=== PATIENT | male | born 1940 | race Caucasian/White ===

== ENCOUNTER → 2021-02-21 | Outpatient (CLI) | payer MEDICARE ==
[2021-02-21 09:21] LABS: HCT 48.2 % (39.0-53.0); HGB 15.9 gm/dL (13.0-17.5); MCH 31.7 pg (25.0-35.0); MCV 96.3 fL (80.0-100.0); Platelet Count 195 k/uL (150-450); RBC 5.01 m/uL (4.30-5.90); RDW 13.2 % (11.5-15.5); WBC 6.6 k/uL (3.8-10.6)
[2021-02-21 09:38] LABS: Potassium 4.2 mmol/L (3.5-5.1)
== END | disposition home or self-care (01) ==
LOC: LABPAT 08:43
PROVIDERS: ATTEND Internal Medicine Clinical Cardiac Electrophysiology
DX: Z01.812 Encounter for preprocedural laboratory examination (principal); I48.19 Other persistent atrial fibrillation
CPT/HCPCS: 36415; 80051; 82565; 84520; 85027

== ENCOUNTER 2021-03-02 12:44 | Day surgery (SDC) | payer MEDICARE ==
[2021-02-24 10:40] VITALS: BMI 31.1
[~2021-03-02 12:44] MED LIST: DEXAMETHASONE SOD PHOSPHATE 4 MG/ML 1 ML VIAL IV ONE; LACTATED RINGERS 1,000 ML IV SCH; LIDOCAINE 1% (10MG/ML) FOR IV START INTRADERMA PRN; ONDANSETRON 4 MG/2 ML VIAL IVP ONE; ONDANSETRON 4 MG/2 ML VIAL IVP PRN; SODIUM CHLORIDE 0.9% 1,000 ML IV SCH
[2021-03-02] MEDS ORDERED: SODIUM CHLORIDE 0.9% 1,000 ML IV ONE (13:11)
[2021-03-02 13:46] VITALS: RESP 16
[2021-03-02 14:03] LABS: Prothrombin Time 19.8 sec (9.0-12.0)
[2021-03-02] MEDS ORDERED: SUCCINYLCHOLINE CHLORIDE 100 MG/5 ML SYR IV ONE (15:27)
[2021-03-02] MEDS ORDERED: PHENYLEPHRINE-0.9% NACL SYG 1,000 MCG/10 ML SYRINGE ONE (15:27)
[2021-03-02] MEDS ORDERED: HEPARIN SODIUM,PORCINE 10,000 UNIT/ML 1 ML VIAL ONE (15:27)
[2021-03-02] MEDS ORDERED: PROPOFOL 10 MG/ML 20 ML VIAL IV ONE (15:27)
[2021-03-02] MEDS ORDERED: LIDOCAINE 1% INJ 10MG/ML (20 ML MDV) ONE ×2 (15:27→16:03)
[2021-03-02] MEDS ORDERED: fentaNYL (PF) 50 MCG/ML 2 ML AMP ONE (15:27)
[2021-03-02] MEDS ORDERED: LIDOCAINE URO-JET JELLY 2% 5 ML KIT ONE (15:50)
[2021-03-02] MEDS ORDERED: HEPARIN SODIUM (1,000 UNIT/ML) 1,000 UNIT in SODIUM CHLORIDE 0.9% 1,000 ML IRRIGATION ONE (15:54)
[2021-03-02] MEDS ORDERED: HEPARIN SOD,PORK IN 0.45% NACL 25,000 UNIT in 0.45% NACL 1 250ML.BAG IV ONE (15:55)
[2021-03-02] MEDS ORDERED: LIDOCAINE 1% INJ 10MG/ML (20 ML MDV) SQ ONE (16:40)
[2021-03-02] MEDS ORDERED: IOPAMIDOL-370 100ML BTL INJ ONE (17:04)
[2021-03-02] MEDS ORDERED: ACETAMINOPHEN TAB 325 MG TAB PO PRN (18:49)
--- NOTE | 2021-03-02 19:04 | P.PRLE ---
RE: Don Cuellar Dear Staceydanny Ochoa underwent an A. fib ablation with cryoablation and ablation of the left atrial roof and septum He was noted to be hypertensive in the hospital and therefore I have started valsartan in place of quinapril and hydralazine He has underlying sick sinus syndrome and therefore I'm holding atenolol temporarily I will check on him in about a week's time Thank you for entrusting me with the care of the patient Warm regards Sincerely Noman Kovacs
--- NOTE | 2021-03-02 19:10 | P.EPPROC ---
- EP Procedure Note Electrophysiology Procedure Note: PROCEDURE A. fib ablation DIAGNOSIS Persistent Atrial fibrillation, symptomatic, refractory to therapy RESULT No left atrial appendage mass seen on intracardiac echo Successful A. fib ablation/pulmonary vein isolation of all veins using cryo- ablation Complete entrance block in all 4 veins confirmed Linear ablation of the left atrial roof Septal ablation, LA No evidence for phrenic nerve injury Dilated left atrium, long roofline Esophageal deflection YES , left-sided esophagus Electrical cardioversion with a synchronized shock across the chest YES PROCEDURE DETAILS Patient was brought to the EP lab in a fasting state after obtaining written informed consent. Procedure performed under general anesthesia Esophagus was intubated. Esophageal temperature monitoring with circa catheter. Esophageal deflection with an endoscope to avoid hypothermia of the esophagus. After initial muscle relaxant use, muscle relaxants were not given thereafter in order to assess phrenic nerve during procedure. Patient prepped and draped as per protocol Cryo ablation-set up with standard preparation of the cryoablation tools done. Femoral Venous access obtained on the right and left groins and sheaths placed Diagnostic catheters for the high right atrium, phrenic nerve stimulation and pa cing, His bundle, coronary sinus placed Intracardiac echo catheter placed. Long sheath placed in the right atrium Left and right transseptal catheterization performed under intracardiac echo guidance. Intravenous heparin with aCT above 300 Later, catheter positioning and balloon positioning in the left atrium and pulmonary veins, under intracardiac echo guidance Diagnostic EP study with coronary sinus pacing and recording Baseline measurements: QRS 118, QT 446 Transseptal catheterization performed RA pressure 15/9/12 LA pressure 11/9/10 Transseptal catheterization performed with standard sheath. The cryoablation sheath was then placed with an over the wire exchange without any acute complications. The cryoablation balloon was placed in the office of each pulmonary vein and all 4 pulmonary veins were isolated. IV dye was injected to confirm occlusion. Goal: achieve complete occlusion of the pulmonary vein, achieve -30 degrees C at 30 seconds and achieve -40 degrees C at 60 seconds and a time to effect of less than 60 seconds. If not, the balloon was repositioned to obtain this result After completion of Cryoblation with durations from 180-240 seconds, entrance block was confirmed with the Attain circular catheter in a roving fashion around the antrum of the pulmonary veins Phrenic nerve pacing was performed from the SVC, right innominate vein area and diaphragm voltage was monitored. Diaphragmatic contractions were also monitored manually for strength of contraction. The inferior branch of the left superior veins were cannulated with the achieve catheter, for sequential roofline ablations. A complete line of block was made and no grams were noted along this line when mapped subsequently The left atrial septum was ablated with the balloon placed along the posterior septum and the achieve catheter in the inferior tributary of the right superior pulmonary vein. Complete quiescent cyst was noted in the septum following this At the end of the procedure the Achieve catheter was once again used to check for entrance block Phrenic nerve stimulation was performed to confirm diaphragmatic stimulation the end of the procedure Cine fluoroscopy was performed at the very end of the procedure to confirm movement of both diaphragms with inspiration and expiration At the end of the procedure the patient was extubated Venous sheaths were removed and hemostasis assured with a closure device PROCEDURES PERFORMED Diagnostic EP study CS pacing and recording Left and right transseptal catheterization Catheter the mapping of the tachycardia Intracardiac echocardiography Pulmonary vein isolation with transseptal and comprehensive EPS, 31940 Left atrial roof line, +16915 Linear ablation, left atrium, +03977 Electrical cardioversion with a synchronized shock across the chest [id number]
--- NOTE | 2021-03-02 19:16 | P.PCN ---
Preoperative Diagnosis: Extended procedure The patient had very dilated large pulmonary veins The left superior pulmonary vein had a large tributaries which were individually isolated with cryoablation, three-minute lesions each The left inferior pulmonary vein had 2 large tributaries which are also individually isolated with 2 sequential cryoablation lesions for 3 minutes each Effectively the patient had 4 left-sided pulmonary vein that was sequentially isolated Isolating the left-sided veins to can longer time since the ostia of the left- sided veins were large and required sequential antral cryo- ablations
[2021-03-02] MEDS ORDERED: ACETAMINOPHEN IV (For NPO) 1,000 MG in EMPTY BAG 1 BAG IVPB ONE (20:00)
[2021-03-02] MEDS ORDERED: ATORVASTATIN 20 MG TAB PO SCH (21:00)
[2021-03-02] MEDS ORDERED: VALSARTAN 160 MG TAB PO SCH (21:00)
[2021-03-02] MEDS ORDERED: WARFARIN 10 MG TAB PO ONE (21:00)
--- NOTE | 2021-03-03 08:01 | P.DS ---
Providers Attending physician: Noman Kovacs Primary care physician: Niharika Mendezroy [facility] Course: Patient is doing well no chest discomfort no dizziness lightheadedness no palpitations He does have a living will for sore throat No pain in the groins Groins of healed well no hematoma On examination his blood pressure is normal 130and 4 mmHg Temperature 99.5 degrees Looks well Heart sounds S1 and S2 are normal no murmurs or gallop or rub Breath sounds are clear no rhonchi no crackles Extremities warm no edema Impression Persistent atrial fibrillation Underlying Sick Sinus Syndrome Significantly dilated left atrium Status post pulmonary vein isolation, linear ablation in the septum of the left atrium and we did ablation of the left atrial roof Plan Resume warfarin at the usual dose. Yesterday he got 10 mg of Coumadin since INR is 2.0 Stop quinapril Stop hydralazine Valsartan 160 mg by mouth daily in the evening Continue amlodipine 10 mg in a.m. Hold off on atenolol for now Continue atorvastatin fenofibrate baby aspirin Incentive spirometry discussed May go home today later this morning if stable Will follow in a week PT/INR and follow-up Controlled monitor and follow-up Plan - Discharge Summary Discharge Rx Participant: No New Discharge Prescriptions: New Valsartan [Diovan] 160 mg PO DAILY #90 tablet Aspirin 81 mg PO DAILY #90 tab Discontinued hydrALAZINE HCL [Apresoline] 25 mg PO BID atenoloL [Tenormin] 25 mg PO HS Quinapril HCl [Accupril] 20 mg PO BID No Action Vitamin B Complex 1 each PO BID Warfarin [Coumadin] 7.5 mg PO SUTUWETHSA Warfarin [Coumadin] 5 mg PO MOFR Alendronate Sodium [Fosamax] 70 mg PO FR amLODIPine [Norvasc] 10 mg PO DAILY Loperamide [Imodium] 2 mg PO DIRECTED PRN PRN Reason: Diarrhea Cholecalciferol [Vitamin D3 (25 Mcg = 1000 Iu)] 50 mcg PO BID Fenofibrate Nanocrystallized [Tricor] 145 mg PO QAM Atorvastatin Calcium [Lipitor] 20 mg PO HS Discharge Medication List Alendronate Sodium [Fosamax] 70 mg PO FR 02/24/21 [History] Atorvastatin Calcium [Lipitor] 20 mg PO HS 02/24/21 [History] Cholecalciferol [Vitamin D3 (25 Mcg = 1000 Iu)] 50 mcg PO BID 02/24/21 [History] Fenofibrate Nanocrystallized [Tricor] 145 mg PO QAM 02/24/21 [History] Loperamide [Imodium] 2 mg PO DIRECTED PRN 02/24/21 [History] Vitamin B Complex 1 each PO BID 02/24/21 [History] Warfarin [Coumadin] 5 mg PO MOFR 02/24/21 [History] Warfarin [Coumadin] 7.5 mg PO SUTUWETHSA 02/24/21 [History] amLODIPine [Norvasc] 10 mg PO DAILY 02/24/21 [History] Aspirin 81 mg PO DAILY #90 tab 03/02/21 [Rx] Valsartan [Diovan] 160 mg PO DAILY #90 tablet 03/02/21 [Rx] Follow up Appointment(s)/Referral(s): Noman Kovacs MD [STAFF PHYSICIAN] - 1 Week Activity/Diet/Wound Care/Special Instructions: Post EP study - Ablation instructions 1. Keep access sites dry for 2 days. 2. No heavy lifting or straining for 2 days. 3. Avoid bending the hips repeatedly for 2 days. 4. You may go up and down stairs slowly Call if the following is noted 1. Bleeding, increasing swelling or pain at the access sites. 2. Increasing chest discomfort, especially upon taking a deep breath. 3. Increasing shortness of breath, at rest or with exertion. 4. Undue cough / phlegm 5. Difficulty or pain while swallowing. 6. Pain or change in color in the extremities. 7. Fever, chills, rigors. 8. Increasing headache or neurologic symptoms. 9. Dizziness, fainting, palpitations Medication changes Stop hydralazine Hold atenolol Stop quinapril Valsartan 160 mg once daily in the evening, new medication Amlodipine 10 mg in the morning Continue warfarin Continue atorvastatin fenofibrate and a baby aspirin Follow Dr. Kovacs/Agustina Crook in 1-2 weeks Discharge Disposition: HOME SELF-CARE
[2021-03-03 08:03] VITALS: BP 145/84; PULSE 87; TEMP 98.8
[2021-03-03] MEDS ORDERED: amLODIPine 10 MG TAB PO SCH (09:00)
[2021-03-03 11:12] LABS: Chol/HDL Ratio 2.67 Ratio
[2021-03-03 11:56] LABS: INR 1.94 (0.90-1.11); Prothrombin Time 21.2 sec (9.9-11.9)
== END 2021-03-03 11:00 | disposition home or self-care (01) ==
LOC: CATHEP 12:44 → 6NMEDSUR 18:25 → CATHEP 03-03 11:00
PROVIDERS: ATTEND Internal Medicine Clinical Cardiac Electrophysiology
DX: I48.19 Other persistent atrial fibrillation (principal); I49.5 Sick sinus syndrome; I65.23 Occlusion and stenosis of bilateral carotid arteries; E78.5 Hyperlipidemia, unspecified; I10 Essential (primary) hypertension; Z79.01 Long term (current) use of anticoagulants; Z79.83 Long term (current) use of bisphosphonates; Z79.899 Other long term (current) drug therapy
CPT/HCPCS: 93609; 93656; 93657; 80061; 85610 ×2; 83036; 87635; C1759; C1894 ×2; C1769 ×4; C1760; C1730 ×2; C1893; C1733; C1766; J2001; J0131; Q9967; J1644

== ENCOUNTER 2021-03-06 11:04 | Emergency (ER) | payer MEDICARE ==
--- NOTE | 2021-03-06 11:53 | ED ---
General Adult HPI - General Chief complaint: Recheck/Abnormal Lab/Rx Stated complaint: post ablation groin pain Source: patient, family Mode of arrival: wheelchair Limitations: no limitations - History of Present Illness Initial comments: 80-year-old male with a past medical history of atrial fibrillation, hyperlipidemia, hypertension with ablation done 4 days ago presents to the emergency room for left groin pain. Patient states he has had bruising since he left the hospital however yesterday started to get left groin pain. Patient states that he was out and about on Saturday going to jainism and feeding the birds. States she was bending over to clean his toilet. He was not sure if he caused a problem with the procedure or if he maybe pulled his groin. Patient called Dr. Kovacs's office and they recommended he come to the emergency room so someone could "lay eyes on him."Patient has no other complaints at this time including shortness of breath, chest pain, abdominal pain, nausea or vomiting, headache, or visual changes. - Related Data Home Medications Medication Instructions Recorded Confirmed Alendronate Sodium [Fosamax] 70 mg PO FR 02/24/21 03/06/21 Atorvastatin Calcium [Lipitor] 20 mg PO HS 02/24/21 03/06/21 Cholecalciferol [Vitamin D3 (25 50 mcg PO BID 02/24/21 03/06/21 Mcg = 1000 Iu)] Fenofibrate Nanocrystallized 145 mg PO QAM 02/24/21 03/06/21 [Tricor] Loperamide [Imodium] 2 mg PO QID PRN 02/24/21 03/06/21 Vitamin B Complex 1 cap PO BID 02/24/21 03/06/21 Warfarin [Coumadin] 5 mg PO MOFR 02/24/21 03/06/21 Warfarin [Coumadin] 7.5 mg PO SUTUWETHSA 02/24/21 03/06/21 amLODIPine [Norvasc] 10 mg PO DAILY 02/24/21 03/06/21 Aspirin 81 mg PO HS 03/06/21 03/06/21 Valsartan [Diovan] 160 mg PO HS 03/06/21 03/06/21 Allergies Allergy/AdvReac Type Severity Reaction Status Date / Time No Known Allergies Allergy Verified 03/06/21 13:32 Review of Systems ROS Statement: Those systems with pertinent positive or pertinent negative responses have been documented in the HPI. ROS Other: All systems not noted in ROS Statement are negative. 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 Absent: scleral icterus, conjunctival injection ENT exam: Present: normal exam, mucous membranes moist Neck exam: Present: normal inspection, full ROM. Absent: tenderness Respiratory exam: Present: normal lung sounds bilaterally. Absent: respiratory distress, wheezes Cardiovascular Exam: Present: regular rate, normal rhythm, normal heart sounds GI/Abdominal exam: Present: soft, normal bowel sounds. Absent: distended, tenderness Extremities exam: Present: normal capillary refill (Marvin refill less than 2 seconds, DP pulse 2+ left lower extremity.), other (Patient has mild ecchymosis of the left groin with minimal tenderness.) Course Vital Signs 03/06/21 11:10 Temperature 98.2 F Pulse Rate 111 H Respiratory 20 Rate Blood Pressure 132/77 O2 Sat by Pulse 96 Oximetry EKG Findings - EKG Comments: EKG Findings:: Sinus tachycardia, ventricular rate 103, SD interval 172, QTc 476 Medical Decision Making - Medical Decision Making Patient underwent atrial fibrillation ablation on 03/02/2021 with access through the L groin. Vitals are stable. EKG shows a sinus tachycardia with a ventricular rate of 103. CBC CMP unremarkable. INR therapeutic at 2.2. Ultrasound shows a hematoma measuring 6.4 cm. No pseudoaneurysm evident. Case was discussed with patient's network intern Dr. Kovacs. There is concern that patient spending on Saturday may have triggered this hematoma. At this point recommends discharging patient home. Patient has an appointment with him on Saturday. They will return here for any worsening symptoms. - Lab Data Result diagrams: 03/06/21 12:20 03/06/21 12:20 Lab Results 03/06/21 03/06/21 03/06/21 Range/Units 12:20 12:20 12:20 WBC 7.5 (3.8-10.6) k/uL RBC 4.65 (4.30-5.90) m/uL Hgb 15.2 (13.0-17.5) gm/dL Hct 44.7 (39.0-53.0) % MCV 96.1 (80.0-100.0) fL MCH 32.6 (25.0-35.0) pg MCHC 33.9 (31.0-37.0) g/dL RDW 13.9 (11.5-15.5) % Plt Count 194 (150-450) k/uL MPV 8.1 Neutrophils % 77 % Lymphocytes % 14 % Monocytes % 5 % Eosinophils % 2 % Basophils % 0 % Neutrophils # 5.8 (1.3-7.7) k/uL Lymphocytes # 1.1 (1.0-4.8) k/uL Monocytes # 0.4 (0-1.0) k/uL Eosinophils # 0.2 (0-0.7) k/uL Basophils # 0.0 (0-0.2) k/uL PT 22.3 H (9.0-12.0) sec INR 2.2 H (<1.2) APTT 44.0 H (22.0-30.0) sec Sodium 136 L (137-145) mmol/L Potassium 3.9 (3.5-5.1) mmol/L Chloride 105 (98-107) mmol/L Carbon Dioxide 23 (22-30) mmol/L Anion Gap 8 mmol/L BUN 15 (9-20) mg/dL Creatinine 0.95 (0.66-1.25) mg/dL Est GFR (CKD-EPI)AfAm 89 (>60 ml/min/1.73 sqM) Est GFR (CKD-EPI)NonAf 77 (>60 ml/min/1.73 sqM) Glucose 135 H (74-99) mg/dL Calcium 9.5 (8.4-10.2) mg/dL Total Bilirubin 1.1 (0.2-1.3) mg/dL AST 39 (17-59) U/L ALT 25 (4-49) U/L Alkaline Phosphatase 42 (38-126) U/L Total Protein 7.5 (6.3-8.2) g/dL Albumin 4.2 (3.5-5.0) g/dL Disposition Clinical Impression: Hematoma Disposition: HOME SELF-CARE Condition: Good Instructions (If sedation given, give patient instructions): Hematoma (ED) Additional Instructions: Take Tylenol for pain. If pain is severe take Tylenol 3 but remember this can increase risk of falls. Follow-up with your network intern at your scheduled appointment on Saturday. Return to the emergency room for any worsening symptoms. Is patient prescribed a controlled substance at d/c from ED?: No Referrals: Niharika Tovar MD [Primary Care Provider] - 1-2 days oNman Kovacs MD [STAFF PHYSICIAN] - 1-2 days Time of Disposition: 13:38
--- NOTE | 2021-03-06 12:23 | US ---
EXAMINATION TYPE: US lower ext pseudo artery LT DATE OF EXAM: 03/06/2021 COMPARISON: NONE CLINICAL HISTORY: recent cath/rule out pseudoaneurysm. EXAM PERFORMED: Grayscale and color Doppler duplex imaging performed of the groin, post cardiac armida ter to assess for pseudoaneurysm. SIDE PERFORMED: Left Color and Waveform Doppler performed to assess for the presence of pseudoaneurysm; There is no ultrasound evidence of a pseudoaneurysm. There is no evidence of AV shunting. Probable hematoma medial to vessels measuring 6.4 x 3.8 x 5.1cm IMPRESSION: 1 findings are most likely related to a hematoma measuring 6.4 cm. No diagnostic evidence of flow wit hin a pseudoaneurysm
[2021-03-06 12:34] LABS: Basophils % (A) 0 %; Eosinophils # (A) 0.2 k/uL (0-0.7); Eosinophils % (A) 2 %; HCT 44.7 % (39.0-53.0); HGB 15.2 gm/dL (13.0-17.5); Lymphocytes # (A) 1.1 k/uL (1.0-4.8); Lymphocytes % (A) 14 %; MCH 32.6 pg (25.0-35.0); MCHC 33.9 g/dL (31.0-37.0); MCV 96.1 fL (80.0-100.0); Mean Platelet Volume 8.1; Monocytes # (A) 0.4 k/uL (0-1.0); Monocytes % (A) 5 %; Neutrophils # (A) 5.8 k/uL (1.3-7.7); Neutrophils % (A) 77 %; Platelet Count 194 k/uL (150-450); RBC 4.65 m/uL (4.30-5.90); RDW 13.9 % (11.5-15.5); WBC 7.5 k/uL (3.8-10.6)
[2021-03-06 12:44] LABS: Albumin 4.2 g/dL (3.5-5.0); Calcium 9.5 mg/dL (8.4-10.2); Potassium 3.9 mmol/L (3.5-5.1); Total Bilirubin 1.1 mg/dL (0.2-1.3); Total Protein 7.5 g/dL (6.3-8.2)
[2021-03-06 12:47] LABS: INR 2.2 (<1.2); Prothrombin Time 22.3 sec (9.0-12.0)
[2021-03-06] MEDS ORDERED: ACET/COD 300 MG/30 MG STARTER PACK 6 TAB BTL PO STA (13:39)
[2021-03-06 14:09] VITALS: BP 128/74; PULSE 98; RESP 18; TEMP 98.3
== END 2021-03-06 13:58 | disposition home or self-care (01) ==
LOC: EC 11:04
DX: S30.1XXA Contusion of abdominal wall, initial encounter (principal); I48.91 Unspecified atrial fibrillation; E78.5 Hyperlipidemia, unspecified; I10 Essential (primary) hypertension; Z79.82 Long term (current) use of aspirin; Z85.828 Personal history of other malignant neoplasm of skin; X58.XXXA Exposure to other specified factors, initial encounter
CPT/HCPCS: 36415; 80053; 85025; 85610; 85730; 93005; 93975; 99284

== ENCOUNTER → 2021-06-22 | Day surgery (SDC) | payer MEDICARE ==
[2021-06-21 10:18] VITALS: BMI 30.2
[~2021-06-22] MED LIST changes: -DEXAMETHASONE SOD PHOSPHATE 4 MG/ML 1 ML VIAL IV ONE; -LIDOCAINE 1% (10MG/ML) FOR IV START INTRADERMA PRN; +LIDOCAINE 2% INJ 20 MG/ML (2 ML VIAL) ONE; -ONDANSETRON 4 MG/2 ML VIAL IVP ONE; -ONDANSETRON 4 MG/2 ML VIAL IVP PRN; +PROPOFOL 10 MG/ML 20 ML VIAL IV ONE
[2021-06-22 10:16] VITALS: RESP 18; TEMP 98.8
[2021-06-22 10:37] LABS: INR 3.4 (<1.2); Prothrombin Time 34.3 sec (9.0-12.0)
[2021-06-22 10:38] LABS: Calcium 9.1 mg/dL (8.4-10.2); Potassium 4.2 mmol/L (3.5-5.1)
--- NOTE | 2021-06-22 12:13 | P.EPPROC ---
- EP Procedure Note Electrophysiology Procedure Note: Diagnosis Persistent atrial fibrillation despite A. fib ablation PVI, linear ablation left atrial roof, long left atrial roof Septal ablation left atrium Start her on Multaq 400 mg twice daily, atenolol held for 2 days INR 3.4 Details Successful electrical cardioversion with a 200 J shock, AP configuration Sinus rhythm in the 80s PACs and PVCs 1 brief run of nonsustained atrial tachycardia Plan Continue Multaq Continue atenolol 11 continue antihypertensive therapy Reduce warfarin to 7.5 mg daily for 60s and 10 mg on Saturday PT/INR check in 2 weeks Follow-up Dr. Kovacs/Agustina Crook 2 weeks
[2021-06-22 12:51] VITALS: BP 158/88; PULSE 80
== END ==
LOC: CATHEP 09:47
PROVIDERS: ATTEND Internal Medicine Clinical Cardiac Electrophysiology
DX: I48.19 Other persistent atrial fibrillation (principal); I49.9 Cardiac arrhythmia, unspecified; I10 Essential (primary) hypertension; Z79.899 Other long term (current) drug therapy; Z79.01 Long term (current) use of anticoagulants; Z20.822 Contact with and (suspected) exposure to COVID-19
CPT/HCPCS: 92960; 80048; 85610; 87635; J2704; J2001